=== PATIENT | female | born 1950 ===

== ENCOUNTER 2022-08-01 06:00 | Outpatient (RCR) | payer MEDICARE, SELFPAY | END 2022-08-27 23:59 | disposition home or self-care (01) | LOC: MPT 06:00 | PROVIDERS: Visit Provider Nurse Practitioner Family | DX: M25.562 Pain in left knee (principal) | CPT/HCPCS: 97110; 97161; G0283 ==

== ENCOUNTER 2022-08-28 06:00 | Outpatient (RCR) | payer MEDICARE, SELFPAY | END 2022-09-24 23:59 | disposition home or self-care (01) | LOC: MPT 06:00 | PROVIDERS: Visit Provider Nurse Practitioner Family | DX: M25.562 Pain in left knee (principal) | CPT/HCPCS: 97110; G0283 ==